=== PATIENT | male | born 1985 | race American Indian/Alaskan Native ===

== ENCOUNTER 2018-08-05 21:36 | Emergency (ER) | payer OTHER ==
[2018-08-05] MEDS ORDERED: NACL 0.9% 500 ML 500 ML IV ONE (21:57)
[2018-08-05] MEDS ORDERED: NACL 0.9% 1000 ML 1,000 ML IV ONE (21:57)
--- NOTE | 2018-08-05 22:45 | Emergency Department Report ---
ED Syncope HPI - General Chief Complaint: Syncope Stated Complaint: SYNCOPE/WEAKNESS Time Seen by Provider: 08/05/18 21:48 - History of Present Illness Initial Comments: Patient is a 33-year-old -[place] male who states that he had a syncopal episode after giving plasma. Patient states he donated plasma approximately 2 hours ago and after the session was finished patient states he got up and felt very dizzy and diaphoretic and hot. Patient didn't have a syncopal episode. The patient did not bite his time there was no urinary incontinence. Patient states he still feels some weakness. Patient denies shortness of breath chest pain, "congestion and fevers chills nausea vomiting at this time. - Related Data Allergies/Adverse Reactions: Allergies No Known Allergies Allergy (Verified 08/05/18 22:21) ED Review of Systems ROS: Stated complaint: SYNCOPE/WEAKNESS Other details as noted in HPI Comment: All other systems reviewed and negative ED Past Medical Hx - Past Medical History Previous Medical History?: No Hx Hypertension: No Hx CVA: No Hx Heart Attack/AMI: No Hx Congestive Heart Failure: No Hx Diabetes: No Hx Deep Vein Thrombosis: No Hx Pulmonary Embolism: No Hx GERD: No Hx Liver Disease: No Hx Renal Disease: No Hx of Cancer: No Hx Sickle Cell Disease: No Hx Arthritis: No Hx Headaches / Migraines: No Hx Seizures: No Hx Kidney Stones: No Hx Psychiatric Treatment: No Hx Asthma: No Hx COPD: No Hx Tuberculosis: No Hx Dementia: No Hx HIV: No - Surgical History Past Surgical History?: No Hx Coronary Stent: No Hx Open Heart Surgery: No Hx Pacemaker: No Hx Internal Defibrillator: No Hx Cholecystectomy: No Hx Appendectomy: No Hx Breast Surgery: No - Social History Smoking Status: Current Every Day Smoker Substance Use Type: Alcohol ED Physical Exam - General Limitations: No Limitations General appearance: alert, in no apparent distress - Head Head exam: Present: atraumatic, normocephalic - Eye Eye exam: Present: normal appearance - ENT ENT exam: Present: mucous membranes moist - Neck Neck exam: Present: normal inspection - Respiratory Respiratory exam: Present: normal lung sounds bilaterally. Absent: respiratory distress, wheezes, rales, rhonchi - Cardiovascular Cardiovascular Exam: Present: regular rate, normal rhythm. Absent: systolic murmur, diastolic murmur, rubs, gallop - GI/Abdominal GI/Abdominal exam: Present: soft, normal bowel sounds. Absent: distended, tenderness, guarding, rebound - Rectal Rectal exam: Present: deferred - Extremities Exam Extremities exam: Present: normal inspection - Back Exam Back exam: Present: normal inspection - Neurological Exam Neurological exam: Present: alert, oriented X3 - Psychiatric Psychiatric exam: Present: normal affect, normal mood - Skin Skin exam: Present: warm, dry, intact, normal color. Absent: rash ED Course Vital Signs 08/05/18 08/05/18 08/05/18 21:44 21:45 21:47 Temperature 98.3 F Pulse Rate 78 Respiratory 18 Rate Blood Pressure 103/70 103/70 Blood Pressure 103/70 [Right] O2 Sat by Pulse 83 L 100 100 Oximetry 08/05/18 08/05/18 08/05/18 22:15 22:22 22:30 Temperature Pulse Rate 80 76 Respiratory 16 15 15 Rate Blood Pressure 114/69 119/74 Blood Pressure [Right] O2 Sat by Pulse 100 Oximetry 08/05/18 22:45 Temperature Pulse Rate 79 Respiratory 12 Rate Blood Pressure 109/73 Blood Pressure [Right] O2 Sat by Pulse 99 Oximetry ED Medical Decision Making - Lab Data Lab Results 08/05/18 Range/Units 22:24 POC Glucose 121 H (70-105) - Medical Decision Making Patient received a liter and a half of IV fluids and the patient is now asymptomatic. Patient walked to the bathroom and back without any symptoms. Discharge blood pressure is 109/70. Critical care attestation.: If time is entered above; I have spent that time in minutes in the direct care of this critically ill patient, excluding procedure time. ED Disposition Clinical Impression: Dehydration, Orthostatic syncope Disposition: DC-01 TO HOME OR SELFCARE Is pt being admited?: No Does the pt Need Aspirin: No Condition: Stable Referrals: [facility] ERWIN WETZEL MD [Primary Care Provider] - 3-5 Days Time of Disposition: 23:29
[2018-08-06 00:09] VITALS: BP 115/74
== END 2018-08-05 23:59 | disposition home or self-care (01) ==
LOC: ED 21:36
DX: E86.0 Dehydration (principal); F17.200 Nicotine dependence, unspecified, uncomplicated
CPT/HCPCS: 82962; 96360; 99284; J7030; J7040